=== PATIENT | male | born 1975 | race Caucasian/White ===

== ENCOUNTER 2016-05-07 19:40 | Emergency (ER) | payer OTHER ==
[2016-05-07] MEDS ORDERED: DEXAMETHASONE 10 MG/ML VIAL PO STA (20:22)
[2016-05-07] MEDS ORDERED: IBUPROFEN 800 MG TABLET PO STA (20:22)
[2016-05-07] MEDS ORDERED: DEXAMETHASONE 10 MG/ML VIAL ONE (20:24)
[2016-05-07] MEDS ORDERED: IBUPROFEN 800 MG TABLET PO ONE (20:24)
[2016-05-07] MEDS ORDERED: PENICILLIN VK 250 MG TABLET PO STA (20:31)
[2016-05-07] MEDS ORDERED: PENICILLIN VK 250 MG TABLET PO ONE (20:38)
== END 2016-05-07 20:42 | disposition home or self-care (01) ==
DX: J02.0 Streptococcal pharyngitis (principal)
CPT/HCPCS: 87070; 87430; 99283; A9270